=== PATIENT | female | born 1940 | race Two or more races ===

== ENCOUNTER → 2016-07-12 | Outpatient (CLI) | payer OTHER ==
--- NOTE | 2016-07-19 01:14 | ECWPNPC ---
PATIENT NAME: WILLIAN DAWN : 1940 GENDER: FEMALE VISIT DATE: 07/12/2016 DISCHARGE DATE: 07/12/16 1141 VISIT LOCKED DATE TIME: PHYSICIAN: МАРИНА JACOME RESOURCE: МАРИНА JACOME REASON FOR APPOINTMENT 1. BACK PAIN HISTORY OF PRESENT ILLNESS GENERAL: 75YO FEMALE HERE FOR EVALUATION OF LBP AND LEFT LEG PAIN PER REFERRAL FROM [facility].THIS BEGAN LAST SUMMER LIFTING HEAVY WATER BUCKETS.PAIN IS AGGREVATED BY WALKING.RELIEVED SOMEWHAT WITH REST AND WITH SOME RELIEF WITH HYDROCODONE 5-325.DESCRIBES LEFT POSTERIOR THIGH AND INNER THIGH WHEN SHE WALKS AND RELIEF WITH SITTING.HAS NOT TRIALED ANY MEDICATION.DISCUSSED MEDICATION AND TREATMENT OPTIONS. CURRENT MEDICATIONS TAKING XARELTO 20 MG TABLET ORALLY TAKING ATENOLOL 25 MG TABLET ORALLY TAKING LEVOTHYROXINE SODIUM 75 MCG TABLET ORALLY MEDICATION LIST REVIEWED AND RECONCILED WITH THE PATIENT PAST MEDICAL HISTORY BACK PAIN CLOTTING DISORDER/ E CANCER : YES ALLERGIES N.K.D.A. SURGICAL HISTORY TONSILLECTOMY CHOLECYSTECTOMY COLONOSCOPY HYSTERECTOMY BILATERAL OOPHORECTOMY FAMILY HISTORY FATHER: MOTHER: SIBLINGS: ALIVE NO CHILDREN. SOCIAL HISTORY GENERAL: OCCUPATION: UNEMPLOYED, RETIRED. DIET: NO CONCENTRATED SWEETS.. EXERCISE: WALKS ACTIVE. MARITAL STATUS: SINGLE. [employer]. EDUCATION COLLEGE EDUCATION. HOSPITALIZATION/MAJOR DIAGNOSTIC PROCEDURE NO HOSPITALIZATION HISTORY. REVIEW OF SYSTEMS CONSTITUTIONAL: RECENT ILLNESS DENIES . FEVER DENIES . WEIGHT LOSS DENIES . MUSCULOSKELETAL: JOINT PAIN DENIES . JOINT STIFFNESS DENIES . GASTROENTEROLOGY: BOWEL INCONTINENCE DENIES . BLOOD IN STOOL DENIES . HEMATOLOGY/LYMPH: DENIES . BLEEDING DISORDER DENIES . NEUROLOGY: HEADACHE DENIES . SEIZURES DENIES . CARDIOLOGY: CHEST PAIN DENIES . SHORTNESS OF BREATH DENIES . RESPIRATORY: COUGH DENIES . SHORTNESS OF BREATH DENIES . ENDOCRINOLOGY: THYROID DISEASE DENIES . DIABETES DENIES . HEENT: CHANGE IN VISION DENIES . LOSS OF HEARING DENIES . TROUBLE SWALLOWING DENIES . PSYCHOLOGY: ANXIETY DENIES . DEPRESSION DENIES . UROLOGY: URINARY INCONTINENCE DENIES . BLOOD IN URINE DENIES . VITAL SIGNS WT 205.4 LBS, HT 65 IN, BMI 34.18 INDEX, BP 194/81 MM HG, HR 50 /MIN, RR 16 /MIN, TEMP 98.4 F, OXYGEN SAT % 94%, NA INITIALS SC 10:56. EXAMINATION GENERAL EXAMINATION: HEENT:HEAD:, NORMOCEPHALIC, EYES:, EYES NORMAL, NOSE:, NOSE CLEAR, THROAT: NORMAL. LUNGS:LUNG SOUNDS ARE CLEAR. HEART:HEART RATE REGULAR. ABDOMEN:SOFT AND NOT TENDER, NON-DISTENDED. MUSCULOSKELETAL:*. LUMBAR SACRAL SPINEMUSCLE STRENGTH TESTING 5/5 BLE. PALPATION: + FOR PAIN OVER L/S SPINE. + FOR PAIN OVER L/S PARASPINALS. THORACIC SPINENEGATIVE FOR PAIN WITH PALPATION OF THORACIC SPINE. NEGATIVE FOR PAIN WITH PALPATION OF THORACIC PARASPINAL. CERVICALNEGATIVE FOR PAIN WITH PALPATION OF CERVICAL SPINE. NEGATIVE FOR PAIN WITH PALPATION OF CERVICAL PARASPINALS. NEGATIVE FOR PAIN WITH PALPATION OF TRAPEZIUS BILAT. SKIN:NORMAL, NO RASH. NEUROLOGIC EXAM:ALERT AND ORIENTED X 3, DTRS 1-2+ IN ALL 4 EXTREMITIES, DENIES UPPER EXTREMETIES SENSORY LOSS, DENIES LOWER EXTREMETIES SENSORY LOSS. DIAGNOSTIC:MRI L/S SPINE -9-42-11-REVIEWED. ASSESSMENTS LUMBAR SPINAL STENOSIS - M48.06 (PRIMARY) LUMBOSACRAL RADICULOPATHY - M54.17 TREATMENT LUMBAR SPINAL STENOSIS START GABAPENTIN CAPSULE, 100 MG, DIRECTED, ORALLY, BEFORE BEDTIME, 30 DAY(S), 30, REFILLS 2 OTHERS CLINICAL NOTES: ISTOP REGISTRY REVIEWED AND DEMONSTRATES COMPLIANCE. PROCEDURE CODES FA211 ESTABILISHED PATIENT [facility] CHARGE DISPOSITION & COMMUNICATION FOLLOW UP 4 WEEKS ELECTRONICALLY SIGNED BY TROY KWAN ON 07/18/2016 AT 12:52 PM EDT DISCLAIMER : THIS IS A VISIT SUMMARY EXTRACTED FROM THE [employer] CHART. IT IS NOT A COPY OF THE [employer] PROGRESS NOTE. [facility]
== END ==
LOC: M PAIN 11:20
PROVIDERS: ATTEND Nurse Practitioner Family
DX: G89.29 Other chronic pain (principal); M48.06 Spinal stenosis, lumbar region; D68.9 Coagulation defect, unspecified; M54.17 Radiculopathy, lumbosacral region; Z79.01 Long term (current) use of anticoagulants; Z79.899 Other long term (current) drug therapy; Z90.710 Acquired absence of both cervix and uterus; Z85.9 Personal history of malignant neoplasm, unspecified

== ENCOUNTER → 2016-09-07 | Outpatient (CLI) | payer OTHER ==
[~2016-09-07] MED LIST: ISOVUE-M 300 61% 15ML VIAL (Q9967) As Ordered ONE; LIDOCAINE 1% SDV INJ 30 ML VIAL As Ordered ONE; methylPREDNISolone SUSP 40 MG/ML (DEPO-medrol) VIAL (J1030) As Ordered ONE
--- NOTE | 2016-09-07 14:13 | REP ---
PARTIAL LUMBAR SPINE SERIES: Single view. HISTORY: Injection procedure for pain. 11 seconds of fluoroscopy time is reported. FINDINGS: A single fluoroscopically obtained intraprocedural spot radiograph of the lumbar spine documents needle position associated with injection procedure. Signed by Jonas Fagan MD 09/07/2016 03:49 P
--- NOTE | 2016-09-10 00:07 | ECWPNPC ---
PATIENT NAME: WILLIAN DAWN : 1940 GENDER: FEMALE VISIT DATE: 09/07/2016 DISCHARGE DATE: 09/07/16 1215 VISIT LOCKED DATE TIME: PHYSICIAN: ALEAH MARIE RESOURCE: ALEAH MARIE REASON FOR APPOINTMENT 1. LESI HISTORY OF PRESENT ILLNESS HISTORY OF PRESENT ILLNESS: PAIN THE PATIENT DESCRIBES THE PAIN... FALL RISK SCREENING: SCREENING :NO FALLS IN THE PAST YEAR CURRENT MEDICATIONS TAKING XARELTO 20 MG TABLET ORALLY , NOTES: SAT 0900 TAKING ATENOLOL 25 MG TABLET ORALLY , NOTES: 03009/07/16 TAKING LEVOTHYROXINE SODIUM 75 MCG TABLET ORALLY , NOTES: 29909/07/16 TAKING GABAPENTIN 100 MG CAPSULE DIRECTED ORALLY BEFORE BEDTIME, NOTES: STOPPED DUE TO NAUSEA TAKING INVOKANA 100 MG TABLET 1 TABLET ORALLY ONCE A DAY, NOTES: YESTERDAY TAKING HYDROCODONE-ACETAMINOPHEN 5-500 MG CAPSULE 1 CAPSULE NEEDED ORALLY EVERY 6 HRS, NOTES: TAKING EVERY 4 HOURS MEDICATION LIST REVIEWED AND RECONCILED WITH THE PATIENT PAST MEDICAL HISTORY BACK PAIN CLOTTING DISORDER/ E CANCER ALLERGIES SHELLFISH: STOP BREATHING REVIEW OF SYSTEMS CONSTITUTIONAL: ANY CHANGE IN YOUR MEDICAL CONDITION? NO . CHILLS NO . FEVER NO . INFECTION: DO YOU HAVE NEW INFECTIONS? NO . DO YOU HAVE HISTORY OF MRSA? NO . MUSCULOSKELETAL: ANY NEW PATTERNS OF PAIN OR NUMBNESS? NO . GASTROENTEROLOGY: ANY NEW CHANGE IN BOWEL CONTROL? NO . GENITOURINARY: ANY NEW CHANGE IN BLADDER CONTROL? YES, BLADDER INCONTINENCE . IS THERE A CHANCE YOU COULD BE ? NO . HEMATOLOGY/LYMPH: DO YOU TAKE ANY BLOOD THINNERS? (FOR EXAMPLE- COUMADIN, PLAVIX, AGGRENOX, PLATEL, PRADAXA, OR XARELTO) NO . WHEN WAS YOUR LAST DOSE? DATE: TIME: . NEUROLOGY: HAVE YOU FALLEN IN THE PAST 6 MONTHS? NO . ANY NEW EXTREMITY NUMBNESS OR WEAKNESS? YES, DOWN LEFT HIP . CARDIOLOGY: DO YOU HAVE A PACEMAKER OR DEFIBRILLATOR? NO . RESPIRATORY: HAVE YOU BEEN SICK IN THE PAST WEEK? NO . FEVER NO . FLU LIKE SYMPTOMS? NO . COUGH NO . INTEGUMENTARY: DO YOU HAVE ANY RASHES OR OPEN SORES? NO . ALLERGIC/IMMUNO: ARE YOU ALLERGIC TO SHELLFISH OR IV DYE? NO . ANY NEW ALLERGIES? NO . PSYCHIATRIC: DO YOU HAVE THOUGHTS OF HURTING YOURSELF OR SOMEONE ELSE? NO . ARE YOU ABUSED, NEGLECTED, OR IN AN UNSAFE ENVIRONMENT? NO . ENDOCRINOLOGY: ARE YOU DIABETIC? YES . OTHER: DO YOU NEED ANY PRESCRIPTIONS? NO . IF YES, PLEASE LIST: ____ . ANY NEW PROBLEMS WITH YOUR MEDICATIONS? NO . WHEN DID YOU LAST EAT? 3AM TOAST . WHEN DID YOU LAST DRINK? 3AM . WHAT DID YOU LAST DRINK? WATER . NAME OF PERSON DRIVING YOU HOME? АЛЕКСАНДР OMALLEY . DO YOU HAVE ANY OTHER QUESTIONS OR CONCERNS NO . REVIEWED BY: PROVIDER: . VITAL SIGNS WT 200.0 LBS, HT 65 IN, BMI 33.28 INDEX, BP 160/70 MANUAL, HR 63 /MIN, RR 16 /MIN, TEMP 98.7 F, OXYGEN SAT % 99%, NA INITIALS TL 1019, REVIEWED BY: NLSTATES BLOOD PRESSURE ALWAYS HIGH WHEN SHE IS HERE. ASSESSMENTS INTERVERTEBRAL DISC DISORDERS WITH RADICULOPATHY, LUMBOSACRAL REGION - M51.17 (PRIMARY) PROCEDURES PRE PROCEDURE DIAGNOSIS LUMBOSACRAL RADICULOPATHY, LUMBOSACRAL DISC DISORDER WITH RADICULOPATHY POST PROCEDURE DIAGNOSIS LUMBOSACRAL RADICULOPATHY , LUMBOSACRAL DISC DISORDER WITH RADICULOPATHY PROCEDURE L5-S1 LUMBAR EPIDURAL STEROID INJECTION UNDER FLUOROSCOPIC GUIDANCE SURGEON DR. ALEAH MARIE [employer]ICAL GOODS WORKER NONE ANESTHESIA LOCAL PRE PROCEDURE NOTE THE PATIENT HAS A HISTORY OF CHRONIC LOW BACK PAIN. I EVALUATE THE PATIENT AND REVIEWED THE CHART. I WENT OVER THE RISKS, ALTERNATIVES, AND BENEFITS ASSOCIATED WITH THIS PROCEDURE. THE PATIENT WOULD LIKE TO PROCEED AND GIVE CONSENT TO PERFORMED THE PROCEDURE. THE PATIENT DENIES UNEXPLAINABLE WEIGHT LOSS, FEVER, CHILLS, OR NEW CHANGES IN URINARY OR BOWEL CONTROL. DESCRIPTION OF PROCEDURE THE PATIENT WAS BROUGHT TO THE PROCEDURE ROOM AND PLACED IN THE PRONE POSITION. THE LUMBOSACRAL AREA WAS CLEANED WITH BETADINE SOLUTION AND DRAPED ASEPTICALLY. THE PROCEDURE WAS DONE UNDER STERILE CONDITIONS. I CHECKED LATERALITY AND THE LEVEL WHERE THE PROCEDURE WAS GOING TO BE PERFORMED WITH THE PATIENT AND THE SUPPORTING STAFF AT THE MOMENT OF THE TIME OUT IN THE PROCEDURE ROOM. UNDER FLUOROSCOPIC GUIDANCE, THE TARGET POINT WAS SELECTED AT THE INTERLAMINAR LEVEL OF L5-S1. LIDOCAINE WAS USED TO NUMB THE SKIN AND THE SUBCUTANEOUS TISSUE BELOW IT. EPIDURAL TUOHY NEEDLE, 17-GAUGE, WAS ADVANCED UNDER FLUOROSCOPIC GUIDANCE AND FOLLOWING PATIENT FEEDBACK UNTIL THE EPIDURAL SPACE WAS REACHED, 7 CM DEEP INTO THE SKIN BY THE LOSS OF RESISTANCE TECHNIQUE. ISOVUE M DYE 30%, 0.25 ML, WAS INJECTED SHOWING ADEQUATE SPREAD OF THE DYE. THEN, A SOLUTION OF 3 ML OF NORMAL SALINE WITH DEPO-MEDROL 60 MG WAS INJECTED SLOWLY FOLLOWING PATIENT FEEDBACK. THERE WAS NO EVIDENCE OF BLOOD, PARESTHESIA OR CEREBROSPINAL FLUID DURING THE PROCEDURE. THE PATIENT WAS SENT TO THE RECOVERY ROOM. THE PATIENT WAS MOVING THE EXTREMITIES AND DOING WELL. THERE WAS NO COMPLICATION DURING THE PROCEDURE. FLUOROSCOPY TIME WAS 11 SECONDS. POST PROCEDURE NOTE THE PATIENT WILL BE SEEN IN A FOLLOW UP IN THE NEXT FEW WEEKS. INSTRUCTIONS WERE GIVEN, QUESTIONS WERE ANSWERED, AND THE PATIENT EXPRESSED UNDERSTANDING AND AGREES WITH THE PLAN. I, EMEKA LOPES, DOCUMENTED THE ABOVE INFORMATION ACTING A SCRIBE FOR DR. MARIE. I HAVE REVIEWED THE ABOVE DOCUMENT, WRITTEN BY EMEKA LOPES SCRIBE AND I VERIFY THAT IT IS ACCURATE DIAGNOSTIC IMAGING [facility] FLUORO GUIDE SPINE INJECTION (PAIN)[id number] PROCEDURE CODES 46021 LUMBAR/SACRAL W/ IMAGING 6045F RADXPS IN END [id number] [id number] DISPOSITION & COMMUNICATION FOLLOW UP 3 WEEKS ELECTRONICALLY SIGNED BY ALEAH MARIE MD ON 09/09/2016 AT 04:08 PM EDT DISCLAIMER : THIS IS A VISIT SUMMARY EXTRACTED FROM THE [employer] CHART. IT IS NOT A COPY OF THE [employer] PROGRESS NOTE. MTDD
== END ==
LOC: M PAIN 10:20
PROVIDERS: ATTEND Anesthesiology
DX: M51.17 Intervertebral disc disorders with radiculopathy, lumbosacral region (principal); G89.29 Other chronic pain; D68.9 Coagulation defect, unspecified; E11.9 Type 2 diabetes mellitus without complications; Z79.01 Long term (current) use of anticoagulants; Z79.891 Long term (current) use of opiate analgesic; Z79.899 Other long term (current) drug therapy; Z91.013 Allergy to seafood; Z85.9 Personal history of malignant neoplasm, unspecified
CPT/HCPCS: 62323; J1030

== ENCOUNTER → 2016-10-06 | Outpatient (CLI) | payer OTHER ==
--- NOTE | 2016-10-12 00:50 | ECWPNPC ---
PATIENT NAME: WILLIAN DAWN : 1940 GENDER: FEMALE VISIT DATE: 10/06/2016 DISCHARGE DATE: 10/06/16 1125 VISIT LOCKED DATE TIME: PHYSICIAN: МАРИНА JACOME RESOURCE: МАРИНА JACOME REASON FOR APPOINTMENT 1. POST LE HISTORY OF PRESENT ILLNESS HISTORY OF PRESENT ILLNESS: HERE FOR POST PROCEDURE F/U.HAD LESI ON 09-07-16.REPORTS SLIGHT IMPROVEMENT FOR TEN DAYS POST PROCEDURE.RATING PAIN VAS 10/10.PAIN IS LOCATED LEFT LOW BACK WITH RADIATION INTO LEFT THIGH. DESCRIBES PAIN CONSTANT ACHING.MRI L/S SPINE SHOWS LARGE DISC HERNIATION AT L4/5.PATIENT IS NOT INTERESTED IN SURGERY. FALL RISK SCREENING: SCREENING :NO FALLS IN THE PAST YEAR CURRENT MEDICATIONS TAKING XARELTO 20 MG TABLET ORALLY DAILY TAKING ATENOLOL 25 MG TABLET ORALLY DAILY TAKING LEVOTHYROXINE SODIUM 75 MCG TABLET ORALLY DAILY TAKING GABAPENTIN 100 MG CAPSULE DIRECTED ORALLY Q 8 HOURS NEEDED TAKING INVOKANA 100 MG TABLET 1 TABLET ORALLY ONCE A DAY, NOTES: USES SPARATICLY NOT-TAKING HYDROCODONE-ACETAMINOPHEN 5-500 MG CAPSULE 1 CAPSULE NEEDED ORALLY EVERY 6 HRS MEDICATION LIST REVIEWED AND RECONCILED WITH THE PATIENT PAST MEDICAL HISTORY BACK PAIN CLOTTING DISORDER/ E CANCER ALLERGIES SHELLFISH: STOP BREATHING REVIEW OF SYSTEMS REVIEWED BY: PROVIDER: МАРИНА JACOME CREAM MAKER . CONSTITUTIONAL: ANY CHANGE IN YOUR MEDICAL CONDITION? YES, SWELLING OF BOTH LEGS AND FEET. . CHILLS NO . FEVER NO . INFECTION: DO YOU HAVE NEW INFECTIONS? NO . DO YOU HAVE HISTORY OF MRSA? NO . MUSCULOSKELETAL: ANY NEW PATTERNS OF PAIN OR NUMBNESS? NO . GASTROENTEROLOGY: ANY NEW CHANGE IN BOWEL CONTROL? NO . GENITOURINARY: ANY NEW CHANGE IN BLADDER CONTROL? NO . IS THERE A CHANCE YOU COULD BE ? NO . HEMATOLOGY/LYMPH: DO YOU TAKE ANY BLOOD THINNERS? (FOR EXAMPLE- COUMADIN, PLAVIX, AGGRENOX, PLATEL, PRADAXA, OR XARELTO) NO . WHEN WAS YOUR LAST DOSE? DATE: TIME: . NEUROLOGY: HAVE YOU FALLEN IN THE PAST 6 MONTHS? NO . ANY NEW EXTREMITY NUMBNESS OR WEAKNESS? NO . CARDIOLOGY: DO YOU HAVE A PACEMAKER OR DEFIBRILLATOR? NO . RESPIRATORY: HAVE YOU BEEN SICK IN THE PAST WEEK? NO . FEVER NO . FLU LIKE SYMPTOMS? NO . COUGH NO . INTEGUMENTARY: DO YOU HAVE ANY RASHES OR OPEN SORES? NO . ALLERGIC/IMMUNO: ARE YOU ALLERGIC TO SHELLFISH OR IV DYE? YES, SHELLFISH . ANY NEW ALLERGIES? NO . PSYCHIATRIC: DO YOU HAVE THOUGHTS OF HURTING YOURSELF OR SOMEONE ELSE? NO . ARE YOU ABUSED, NEGLECTED, OR IN AN UNSAFE ENVIRONMENT? NO . ENDOCRINOLOGY: ARE YOU DIABETIC? NO . OTHER: DO YOU NEED ANY PRESCRIPTIONS? NO . IF YES, PLEASE LIST: ____ . ANY NEW PROBLEMS WITH YOUR MEDICATIONS? YES, INCREASED GABAPENTIN TO EVERY 8 HOURS AND IS NOT TAKING HYDROCODONES. SKIN ON HER PALMS OF HER HANDS IS PEELING? DUE TO MEDICATIONS??? . WHEN DID YOU LAST EAT? ____ . WHEN DID YOU LAST DRINK? ____ . WHAT DID YOU LAST DRINK? ____ . NAME OF PERSON DRIVING YOU HOME? ____ . DO YOU HAVE ANY OTHER QUESTIONS OR CONCERNS YES, DEPRESSED ABOUT THE INJECTION NOT WORKING. . VITAL SIGNS WT 199.0 LBS, HT 65 IN, BMI 33.11 INDEX, BP 158/78 MM HG, HR 57 /MIN, RR 18 /MIN, TEMP 97.2 F, OXYGEN SAT % 99%, NA INITIALS TL 1043, REVIEWED BY: GUNNAR. EXAMINATION GENERAL EXAMINATION: HEENT:HEAD:, NORMOCEPHALIC, EYES:, EYES NORMAL, NOSE:, NOSE CLEAR, THROAT: NORMAL. LUNGS:LUNG SOUNDS ARE CLEAR. HEART:HEART RATE REGULAR. ABDOMEN:SOFT AND NOT TENDER, NON-DISTENDED. MUSCULOSKELETAL:*. LUMBAR SACRAL SPINEMUSCLE STRENGTH TESTING 5/5 BLE. PALPATION: + FOR PAIN OVER L/S SPINE. + FOR PAIN OVER L/S PARASPINALS. THORACIC SPINENEGATIVE FOR PAIN WITH PALPATION OF THORACIC SPINE. NEGATIVE FOR PAIN WITH PALPATION OF THORACIC PARASPINAL. CERVICALNEGATIVE FOR PAIN WITH PALPATION OF CERVICAL SPINE. NEGATIVE FOR PAIN WITH PALPATION OF CERVICAL PARASPINALS. NEGATIVE FOR PAIN WITH PALPATION OF TRAPEZIUS BILAT. SKIN:NORMAL, NO RASH. NEUROLOGIC EXAM:ALERT AND ORIENTED X 3, DTRS 1-2+ IN ALL 4 EXTREMITIES, DENIES UPPER EXTREMETIES SENSORY LOSS, DENIES LOWER EXTREMETIES SENSORY LOSS. DIAGNOSTIC:MRI L/S SPINE -06-02-16-REVIEWED. ASSESSMENTS LUMBAR SPINAL STENOSIS - M48.06 (PRIMARY) LUMBOSACRAL RADICULOPATHY - M54.17 TREATMENT LUMBAR SPINAL STENOSIS NOTES: I AM GOING TO REQUEST A LUMBAR INTERLAMINAR EPIDURAL STEROID INJECTION L4/5STOP XARELTO X3 DAYS SCHEDULE DAY 4. PROCEDURE CODES FA211 ESTABILISHED PATIENT [facility] CHARGE DISPOSITION & COMMUNICATION FOLLOW UP 2 WEEK POST (REASON: I AM GOING TO REQUEST A LUMBAR INTERLAMINAR EPIDURAL STEROID INJECTION L4/5) ELECTRONICALLY SIGNED BY TROY KWAN ON 10/10/2016 AT 01:40 PM EDT DISCLAIMER : THIS IS A VISIT SUMMARY EXTRACTED FROM THE [employer] CHART. IT IS NOT A COPY OF THE [employer] PROGRESS NOTE. [facility]
== END ==
LOC: M PAIN 10:40
PROVIDERS: ATTEND Nurse Practitioner Family
DX: G89.29 Other chronic pain (principal); M48.06 Spinal stenosis, lumbar region; M54.17 Radiculopathy, lumbosacral region; D68.9 Coagulation defect, unspecified; Z91.013 Allergy to seafood; Z79.01 Long term (current) use of anticoagulants; Z79.899 Other long term (current) drug therapy